=== PATIENT | female | born 1950 | race Caucasian/White ===

== ENCOUNTER 2023-07-06 08:17 | Outpatient (CLI) | payer MEDICARE, BC, SELFPAY ==
--- NOTE | 2023-07-06 09:23 | W.ANESCHARGE ---
Anesthesia Charges Start Date/Time Anesthesia Start Date: 07/06/23 Anesthesia Start Time: 09:30 Stop Date/Time Anesthesia Stop Date: 07/06/23 Anesthesia Stop Time: 10:02 Summary Extremes of Age - Over 70 or under 1: MDA
--- NOTE | 2023-07-06 10:07 | P.ANES_ITS ---
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
== END 2023-07-06 08:18 | disposition home or self-care (01) ==
PROVIDERS: PCP Family Medicine; Visit Provider Internal Medicine Gastroenterology
DX: Z12.11 Encounter for screening for malignant neoplasm of colon (principal); K63.5 Polyp of colon; K57.30 Diverticulosis of large intestine without perforation or abscess without bleeding; Z86.010 Personal history of colon polyps
CPT/HCPCS: 00811; 45380; 45385; 88305; 99100; J2704

== ENCOUNTER 2023-07-13 10:26 | Inpatient (IN) | payer MEDICARE, BC, SELFPAY ==
[2023-07-13] VITALS (26 sets, daily range): BP systolic 111–157; BP diastolic 68–86; PULSE 66–92; RESP 16–20; TEMP 36.6–37.1; O2SAT 94–100; BMI 30.7; BMI 30.3
--- NOTE | 2023-07-13 10:42 | ED_ITS ---
HPI - GI Bleed General Time Seen by Provider: 10:42 Date Seen: 07/13/23 Chief complaint: GI Bleed Stated complaint: GI bleed Time Seen by Provider: 07/13/23 10:26 Source: patient and RN notes reviewed Mode of arrival: ambulatory Limitations: no limitations History of Present Illness HPI Narrative: This 73-year-old female was undergoing routine surveillance colonoscopy for history of high-risk polyps on Thursday07/06/[address] Thompson. She had 2 small polyps, 1 2 mm and a 3 mm polyp removed. She has had valvular surgery and is chronically anticoagulated. Her Coumadin was held 5 days before the procedure in she was bridged with Lovenox. She is back on her Coumadin and was to have an INR checked outpatient today. She admits that she started having carmelo e blood with stools on July 09, states symptoms really started to be progressively worse on July 11 which is Thursday. She last had a more diarrheal stool about half our prior to arrival, she states it was just a lot of red blood with that. She has been having bright red blood with her stools. She feels weak, feels like she is pale. Denies any chest pain, no shortness of breath, no abdominal pain with this. No fevers or chills. 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 Related Data Home Medications Medication Instructions Recorded Confirmed acetaminophen 500 mg tablet 500 mg PO Q6H PRN 01/09/22 01/09/22 amoxicillin 500 mg capsule 2,000 mg PO ONCE PRN 01/09/22 01/09/22 aspirin 81 mg capsule 81 mg PO DAILY 01/09/22 07/13/23 atorvastatin 40 mg tablet 40 mg PO DAILY 01/09/22 07/13/23 calcium carbonate 500 mg calcium 500 mg PO Q4-6H PRN 01/09/22 01/09/22 (1,250 mg) tablet cholecalciferol (vitamin D3) 50 50 mcg PO DAILY 01/09/22 07/13/23 mcg (2,000 unit) capsule cyanocobalamin (vitamin B-12) 1,000 mcg PO DAILY 01/09/22 07/13/23 1,000 mcg capsule furosemide 40 mg tablet (Lasix) 40 mg PO DAILY 01/09/22 07/13/23 iron,carbonyl 65 mg-vitamin C 125 1 tab PO .UD 01/09/22 01/09/22 mg tablet,delayed release (Vitron-C) metformin 1,000 mg tablet 1,000 mg PO BIDWMEAL 01/09/22 07/13/23 lwrbztazzmyf-aktgvltp-rrmkxx tablet 1 tab PO DAILY 01/09/22 07/13/23 primidone 50 mg tablet (Mysoline) 50 mg PO DAILY 01/09/22 01/09/22 progesterone 100 mg PO DAILY 01/09/22 01/09/22 propranolol 60 mg capsule,24 60 mg PO DAILY 01/09/22 01/09/22 hr,extended release warfarin 10 mg tablet 10 mg PO .UD 01/09/22 01/09/22 acetazolamide 250 mg tablet 250 mg PO BID 07/13/23 07/13/23 blood-glucose meter (Accu-Chek 07/13/23 07/13/23 Guide Me Glucose Meter) cephalexin 500 mg capsule 500 mg PO QID 07/13/23 07/13/23 enoxaparin 80 mg/0.8 mL 80 mg subcut Q12H 07/13/23 07/13/23 subcutaneous syringe furosemide 20 mg tablet 20 mg PO BID 07/13/23 07/13/23 lancets (Accu-Chek Softclix 07/13/23 07/13/23 Lancets) medroxyprogesterone 5 mg tablet 5 mg PO DAILY 07/13/23 07/13/23 metoprolol succinate 50 mg 50 mg PO DAILY 07/13/23 07/13/23 tablet,extended release 24 hr warfarin 5 mg tablet mg PO 07/13/23 Allergies Allergy/AdvReac Type Severity Reaction Status Date / Time No Known Drug Allergies Allergy Verified 07/13/23 10:39 Review of Systems Status of ROS: Reports: 6 or more systems reviewed and unremarkable except as noted in History and below [facility] Medical History Diastolic dysfunction ?I51.89 - Other ill-defined heart diseases (ICD-10) Acute blood loss anemia ?D62 - Acute posthemorrhagic anemia (ICD-10) DM2 (diabetes mellitus, type 2) ?E11.9 - Type 2 diabetes mellitus without complications (ICD-10) Colon polyps ?K63.5 - Polyp of colon (ICD-10) Cardiac pacemaker ?Z95.0 - Presence of cardiac pacemaker (ICD-10) Thrombosis of mitral valve ?I34.8 - Other nonrheumatic mitral valve disorders (ICD-10) Atrial fibrillation ?I48.91 - Unspecified atrial fibrillation (ICD-10) HTN (hypertension) ?I10 - Essential (primary) hypertension (ICD-10) Surgical History (Updated 01/13/22 @ 21:58 by Sharlene Eduardo, [employer] WORKER HELPER) Mitral valve replaced ?Z95.2 - Presence of prosthetic heart valve (ICD-10) Social History Smoking Status: Never smoker Do you use any of these nicotine containing products: None How often do you have a drink containing alcohol: never How often do you have six or more drinks on one occasion: Never AUDIT-C Alcohol total score: 0 Non-prescribed substance use: denies use Exam Const: Vital Signs, click to edit/add: Vital Signs - 24 hr 07/13/23 10:32 07/13/23 10:46 07/13/23 11:16 Temperature 98.5 F Pulse Rate 73 Pulse Rate [Right Pulse Oximeter] 85 Respiratory Rate 18 Blood Pressure Blood Pressure [Ri ght Forearm] 135/76 Pulse Oximetry 96 94 95 Oxygen Delivery Me thod Room Air 07/13/23 11:30 07/13/23 11:31 07/13/23 11:32 Temperature Pulse Rate 74 74 73 Pulse Rate [Right Pulse Oximeter] Respiratory Rate Blood Pressure 146/75 H Blood Pressure [Ri ght Forearm] Pulse Oximetry 95 96 95 Oxygen Delivery Me thod 07/13/23 11:45 07/13/23 12:00 07/13/23 12:02 Temperature Pulse Rate 76 73 73 Pulse Rate [Right Pulse Oximeter] Respiratory Rate Blood Pressure 145/74 H Blood Pressure [Ri ght Forearm] Pulse Oximetry 94 95 96 Oxygen Delivery Me thod Iliana is a 73-year-old female ambulatory into the ED of her own accord. She is alert, interactive, no apparent stress. She indeed does look pale to me, sclera clear. Able to speak in complete sentences. CV regular rate and rhythm, systolic murmur heard, 3/6, normal S1-S2, no S3-S4. Lungs are clear, good air entry, no wheezing or crackles. Abdomen is currently soft, no rebound or guarding, no organomegaly. She has no lower extremity edema. She is wearing a panty liner, no active rectal bleeding noted at this time. Documenting provider has reviewed patient's vital signs: yes Course Course ED Course: Patient is currently hemodynamically stable, will have an IV placed, initiate some normal saline, will type and screen, get appropriate blood work obviously including a CBC. She will be on cardiac monitoring and pulse oximetry. Will update endoscopy as it is Thursday and hopefully Dr. Thompson should be here. Reevaluation(s) Time of Reevaluation #1: 11:28 Reevaluation #1: Reviewed with patient her hemoglobin is 8.8, her hemoglobin on 07/08/2023 was 11. It has been in the 11 range for the last year. Her platelet count on July 08 was 244,000. I have ordered 1 unit packed red blood cells to be cross- matched. I am still awaiting her INR. She has had no further bleeding here at this time. She did allude to me at this time that she has been having intermittent explosive diarrhea for couple of months, Dr. Thompson was not aware of this prior to her colonoscopy per patient report, she did not tell him. Time of Reevaluation #2: 12:53 Reevaluation #2: Have updated the patient on the plan for observation here, potential scope tomorrow here if she continues bleeding. She has had her questions answered as well as her 's questions. Consultations Consultation #1: Did just inform Dr. Thompson that patient is here and he reviewed her colonoscopy report. Unfortunately, her polyps were in the cecum and she would likely need a prep for him to scope. She is hemodynamically stable at this point and reviewed with him that she had just arrived but wanted him aware of her presence here. I will keep him posted. Time: 10:54 Consultation #2: Have spoken again with Dr. Thompson and subsequently Dr. Lozoya. Dr. Lozoya could potentially do a colonoscopy EM on her tomorrow for cautery with laser. He is agreeable to this. We will not prep her overnight as it could dislodge the clot, she could have a quick prep in the morning if needed for cautery purposes for the scope. I have ordered tranexamic acid and vitamin K. she is just getting up to go to the bathroom for the 1st time here, she will let us know if she does produce any stool with blood. I did subsequently speak with our hospitalist Dr. Willett, he agrees for admission. Time: 12:27 Vital Signs Vital signs: Initial Vital Signs Temperature 98.5 F 07/13/23 10:32 Temperature Source Temporal Artery Scan 07/13/23 10:32 Pulse Rate 85 07/13/23 10:32 Pulse Rhythm Regular 07/13/23 10:32 Respiratory Rate 18 07/13/23 10:32 Blood Pressure 135/76 07/13/23 10:32 Blood Pressure Mean 95 07/13/23 10:32 Blood Pressure Position Sitting 07/13/23 10:32 Pulse Oximetry 96 07/13/23 10:32 Oxygen Delivery Method Room Air 07/13/23 10:32 Vital Signs Temperature 98.5 F 07/13/23 10:32 Pulse Rate 85 07/13/23 10:32 Respiratory Rate 18 07/13/23 10:32 Blood Pressure 135/76 07/13/23 10:32 Pulse Oximetry 96 07/13/23 10:32 Oxygen Delivery Method Room Air 07/13/23 10:32 Temperature 98.5 F 07/13/23 10:32 Pulse Rate 73 07/13/23 12:02 Respiratory Rate 18 07/13/23 10:32 Blood Pressure 145/74 H 07/13/23 12:02 Pulse Oximetry 96 07/13/23 12:02 Oxygen Delivery Method Room Air 07/13/23 10:32 Medications Administered Medications: Discontinued Medications Generic Name Dose Route Start Last Admin Trade Name Mela PRN Reason Stop Dose Admin Sodium Chloride 1,000 mls @ 500 mls/hr 07/13/23 10:48 07/13/23 11:15 0.9 % Sodium Chloride 1000 Ml IV 07/13/23 12:47 500 mls/hr .Q2H JESSIE Administration Tranexamic Acid 1,000 mg 07/13/23 12:07 07/13/23 12:40 Tranexamic Acid 100 Mg/Ml Inj IV 07/13/23 12:08 1,000 mg ONCE ONE Administration MDM - GI Bleed Lab Data Attestation: I reviewed the patient's lab results. Labs: Lab Results 07/13/23 Range/Units 10:56 WBC 7.76 (4.50-11.00) K/uL RBC 3.02 L (4.00-5.20) m/uL Hgb 8.8 L (12.0-16.0) gm/dL Hct 27.5 L (33.0-51.0) % MCV 91 (80-100) fL MCH 29 (26-34) pg MCHC 32 (32-36) gm/dL RDW Coeff of Nickolas 15.0 (11.5-15.5) % Plt Count 226 (140-440) K/uL Neut % (Auto) 83.0 H (42.0-72.0) % Lymph % (Auto) 11.5 L (20-44) % Lipscomb % (Auto) 4.5 (0.0-11.0) % Eos % (Auto) 0.4 (0.0-7.0) % Baso % (Auto) 0.5 (0.0-3.0) % Neut # (Auto) 6.40 (1.7-7.0) K/uL Lymph # (Auto) 0.90 (0.90-2.90) K/uL Lipscomb # (Auto) 0.30 (0.00-0.90) K/UL Eos # (Auto) 0.03 (0.00-0.50) K/uL Baso # (Auto) 0.04 (0.00-0.30) K/uL Abs Immat Gran (auto) 0.01 (0.00-0.30) K/uL Imm/Tot Granulo (auto) 0.1 % INR 2.10 H (0.91-1.10) Sodium 140 (135-149) mmol/L Potassium 3.9 (3.6-5.1) mmol/L Chloride 109 (96-114) mmol/L Carbon Dioxide 18 L (20-32) mmol/L Anion Gap 13 (7-15) mEq/L BUN 27 (7-30) mg/dL Creatinine 1.2 (0.5-1.5) mg/dL Estimated Creat Clear 38.50 Estimated GFR 48 ml/min Glucose 178 H (60-115) mg/dL Calcium 9.1 (8.4-10.6) mg/dL Total Bilirubin 0.6 (0.1-1.5) mg/dL AST 53 H (12-35) U/L ALT 54 H (4-35) U/L Alkaline Phosphatase 76 (40-150) U/L Total Protein 7.3 (6.0-8.3) g/dL Albumin 4.3 (3.3-5.0) g/dL Blood Type A Negative Antibody Screen NEGATIVE Crossmatch (AHG) See Detail ECG Data Attestation: I personally reviewed and interpreted this ECG as follows: (Sinus rhythm with first-degree AV block, left bundle branch block, rate is 73 beats per minute. QT corrected 513 milliseconds.) ECG interpretation date: 07/13/23 ECG interpretation time: 11:21 Critical Care Time Critical Care Time Critical Care Time: No Discharge Plan Discharge Clinical Impression: Acute blood loss anemia, Lower gastrointestinal hemorrhage Patient Disposition: Admitted As Observation
[2023-07-13 11:06] LABS: Basophils Absolute Auto 0.04 K/uL (0.00-0.30); Basophils Percent Auto 0.5 % (0.0-3.0); Eosinophils Absolute Auto 0.03 K/uL (0.00-0.50); Eosinophils Percent Auto 0.4 % (0.0-7.0); Hematocrit 27.5 % (33.0-51.0); Hemoglobin* 8.8 gm/dL (12.0-16.0); Immature Granulocytes Abs Auto 0.01 K/uL (0.00-0.30); Immature Granulocytes Pct Auto 0.1 %; Lymphocytes Percent Auto 11.5 % (20-44); Mean Corpuscular HGB Conc 32 gm/dL (32-36); Mean Corpuscular Hemoglobin 29 pg (26-34); Mean Corpuscular Volume 91 fL (80-100); Monocytes Percent Auto 4.5 % (0.0-11.0); Platelet Count* 226 K/uL (140-440); Red Blood Count 3.02 m/uL (4.00-5.20); White Blood Count* 7.76 K/uL (4.50-11.00)
[2023-07-13 11:07] LABS: Slide Review Reflex No
[2023-07-13] MEDS: 0.9 % SODIUM CHLORIDE 1000 ml 1,000 ML 500 ML IV (11:15)
[2023-07-13 11:19] LABS: Chloride* 109 mmol/L (96-114)
[2023-07-13 11:20] LABS: Albumin* 4.3 g/dL (3.3-5.0); Potassium* 3.9 mmol/L (3.6-5.1); Sodium* 140 mmol/L (135-149)
[2023-07-13 11:22] LABS: Creatinine* 1.2 mg/dL (0.5-1.5); Estimated Glomerular Filt Rate 48 ml/min
[2023-07-13 11:23] LABS: Alanine Aminotransferase* 54 U/L (4-35); Alkaline Phosphatase* 76 U/L (40-150); Anion Gap 13 mEq/L (7-15); Aspartate Amino Transferase* 53 U/L (12-35); Bilirubin Total* 0.6 mg/dL (0.1-1.5); Blood Urea Nitrogen* 27 mg/dL (7-30); Carbon Dioxide* 18 mmol/L (20-32); Glucose* 178 mg/dL (60-115); Total Protein* 7.3 g/dL (6.0-8.3)
[2023-07-13 11:24] LABS: Calcium* 9.1 mg/dL (8.4-10.6)
[2023-07-13 11:26] LABS: Prothrombin Time 25.1 Seconds
--- NOTE | 2023-07-13 12:35 | ED.NURSE ---
Pt went to bathroom, had a moderate amount of multiple small clots in toilet. No bowel movement.
[2023-07-13] MEDS: TRANEXAMIC ACID 100 MG/ML INJ 1000 MG IV (12:40)
[2023-07-13] MEDS: PHYTONADIONE (VIT K1) 5 MG in 0.9 % SODIUM CHLORIDE 50 ml 50 ML 100 MG IVPB (13:04)
--- NOTE | 2023-07-13 13:12 | ED.NURSE ---
Pt report given to Mendy PYLE
--- NOTE | 2023-07-13 18:47 | PC.NURSE ---
End of shift [id number]: Pt arrived to med/surg unit at 1330. Pt is A&O x4, afebrile and VSS. Pt is independent to SBA with ambulation d/t dizziness & lightheadedness r/t low Hgb. Received 1 unit RBC's on arrival and tolerated transfusion well without reactions. PIV in right AC is now SL and C/D/I. On TELE reading LBBB A paced intermittent A. Fib. Pt is on chronic coumadin and h/o mitral valve replacement. Pt has DM2 controlled with metformin, blood sugar at 1700: 116. Pt is NPO except water for possible EGD or repeat colonoscopy. She had a colonoscopy on Thursday 07/06 and bloody stools began on 07/09. No BM since arrival to the unit. Hgb recheck after blood transfusion is at 1900.
[2023-07-13 20:06] LABS: Hemoglobin* 9.3 gm/dL (12.0-16.0)
--- NOTE | 2023-07-13 21:52 | P.IMHP_ITS ---
Hospitalist- H&P: HPI History of Present Illness Time Seen by Provider: 15:00 Date Seen: 07/13/23 Chief complaint: GI bleed Narrative: Iliana Benjamin is a 73 year old female with a history of mechanical mitral valve replacement, tricuspid valve repair, pacemaker for AFib, diastolic dysfunction COVID type 2 diabetes who had a colonoscopy on 07/06/[address] Thompson during which 2 small polyps were removed. She is chronically anticoagulated with warfarin and was bridged with Lovenox for the procedure. She was supposed to have her last dose of Lovenox tonight. The day after the procedure she started having back pain that was in her low left back and radiated around down the side of her left hip. That pain lasted for a few days. A July 09 she started having small amount of bright red blood in her stool. This continued in that on Thursday the stool was very loose and grossly bloody. This has continued. She feels very weak and her notes that she is extremely pale. Due to low hemoglobin with active lower GI bleeding, she was given a unit of packed red blood cells in the emergency room. Her notes that she is somewhat improved in color and pep since starting that. She denies chest pain, shortness a breath, or fevers. She does feel cold. Review of Systems Status of ROS: Reports: 10 or more systems reviewed and unremarkable except as noted in History and below [facility] Medical History (Updated 07/14/23 @ 01:18 by Veronica Haley MD) Elevated LFTs ?R79.89 - Other specified abnormal findings of blood chemistry (ICD-10) NSTEMI (non-ST elevated myocardial infarction) ?I21.4 - Non-ST elevation (NSTEMI) myocardial infarction (ICD-10) Stage 3 chronic kidney disease ?N18.30 - Chronic kidney disease, stage 3 unspecified (ICD-10) Anemia of unknown etiology ?D64.9 - Anemia, unspecified (ICD-10) Presence of permanent cardiac pacemaker ?Z95.0 - Presence of cardiac pacemaker (ICD-10) Adenomatous colon polyp ?D12.6 - Benign neoplasm of colon, unspecified (ICD-10) Tremor of right hand ?R25.1 - Tremor, unspecified (ICD-10) Chronic anticoagulation ?Z79.01 - watermaster (current) use of anticoagulants (ICD-10) Postmenopausal bleeding ?N95.0 - Postmenopausal bleeding (ICD-10) Tinnitus of both ears ?H93.13 - Tinnitus, bilateral (ICD-10) Actinic keratosis ?L57.0 - Actinic keratosis (ICD-10) Diastolic dysfunction ?I51.89 - Other ill-defined heart diseases (ICD-10) Acute blood loss anemia ?D62 - Acute posthemorrhagic anemia (ICD-10) DM2 (diabetes mellitus, type 2) ?E11.9 - Type 2 diabetes mellitus without complications (ICD-10) Colon polyps ?K63.5 - Polyp of colon (ICD-10) Cardiac pacemaker ?Z95.0 - Presence of cardiac pacemaker (ICD-10) Thrombosis of mitral valve ?I34.8 - Other nonrheumatic mitral valve disorders (ICD-10) Atrial fibrillation ?I48.91 - Unspecified atrial fibrillation (ICD-10) HTN (hypertension) ?I10 - Essential (primary) hypertension (ICD-10) Surgical History (Updated 07/13/23 @ 22:11 by Veronica Haley MD) H/O tubal ligation ?Z98.51 - Tubal ligation status (ICD-10) S/P tonsillectomy and adenoidectomy ?Z90.89 - Acquired absence of other organs (ICD-10) History of permanent cardiac pacemaker placement ?Z95.0 - Presence of cardiac pacemaker (ICD-10) H/O mechanical aortic valve replacement ?Z95.2 - Presence of prosthetic heart valve (ICD-10) Hx laparoscopic cholecystectomy ?Z90.49 - Acquired absence of other specified parts of digestive tract (ICD-10) Hx of cardiac cath ?Z98.890 - Other specified postprocedural states (ICD-10) H/O esophagogastroduodenoscopy ?Z98.890 - Other specified postprocedural states (ICD-10) H/O dilation and curettage ?Z98.890 - Other specified postprocedural states (ICD-10) Hx of colonoscopy ?Z98.890 - Other specified postprocedural states (ICD-10) Mitral valve replaced ?Z95.2 - Presence of prosthetic heart valve (ICD-10) Family History (Updated 07/13/23 @ 14:56 by Veronica Haley MD) Father Heart disease Renal failure Brother Myocardial infarction, Onset Age: 40 Mother Lung cancer Social History (Updated 07/13/23 @ 22:05 by Veronica Haley MD) Narrative: . , Markus, is here with her. Never smoker. Rare EtOH use. FULL CODE. What is your current living situation?: I presently have a place to live Problems where you live: no known problems Problems where you live details: [place] In the past 12 months, utilities in danger of being shut off: no In past 12 months, lack of transportation kept you from medical appts, meetings, work, or getting things needed for daily living: no In the past 12 mos, have been you worried that your food would run out before you had money to buy more?: never true In the past 12 mos, the food you bought just didn't last and you didn't have money to buy more?: never true Highest level of school completed/degree received: GED or equivalent Smoking Status: Never smoker Do you use any of these nicotine containing products: None Second hand tobacco smoke exposure: No How often do you have a drink containing alcohol: monthly or less Alcohol type: wine How many standard drinks containing alcohol do you have on a typical day: 1 or 2 How often do you have six or more drinks on one occasion: Never AUDIT-C Alcohol total score: 1 Non-prescribed substance use: denies use Caffeine: Yes (coffee/tea) How often does anyone, including family, friends and others, physically hurt you : never How often does anyone, including family, friends and others, insult or talk down to you: never How often does anyone, including family, friends and others, threaten you with harm: never How often does anyone, including family, friends and others, scream or curse at you: never service: No Meds Home Medications and Allergies Home Medications Medication Instructions Recorded Confirmed Type acetaminophen 500 mg tablet 500 mg PO Q6H PRN 01/09/22 07/13/23 History amoxicillin 500 mg capsule 2,000 mg PO ONCE PRN 01/09/22 07/13/23 History aspirin 81 mg capsule 81 mg PO DAILY 01/09/22 07/13/23 History atorvastatin 40 mg tablet 40 mg PO DAILY 01/09/22 07/13/23 History calcium carbonate 500 mg calcium 500 mg PO Q4-6H PRN 01/09/22 07/13/23 History (1,250 mg) tablet cholecalciferol (vitamin D3) 50 50 mcg PO DAILY 01/09/22 07/13/23 History mcg (2,000 unit) capsule cyanocobalamin (vitamin B-12) 1,000 mcg PO DAILY 01/09/22 07/13/23 History 1,000 mcg capsule iron,carbonyl 65 mg-vitamin C 125 1 tab PO DAILY 01/09/22 07/13/23 History mg tablet,delayed release (Vitron-C) metformin 1,000 mg tablet 1,000 mg PO BIDWMEAL 01/09/22 07/13/23 History owjcdisapdyn-rqsqlvzb-osgkha tablet 1 tab PO DAILY 01/09/22 07/13/23 History acetazolamide 250 mg tablet 250 mg PO BID 07/13/23 07/13/23 History blood-glucose meter (Accu-Chek 07/13/23 07/13/23 History Guide Me Glucose Meter) furosemide 20 mg tablet 20 mg PO BID 07/13/23 07/13/23 History lancets (Accu-Chek Softclix 07/13/23 07/13/23 History Lancets) medroxyprogesterone 5 mg tablet 5 mg PO DAILY 07/13/23 07/13/23 History metoprolol succinate 50 mg 50 mg PO DAILY 07/13/23 07/13/23 History tablet,extended release 24 hr warfarin 5 mg tablet 5 - 10 mg PO DAILY 07/13/23 07/13/23 History Allergies Allergy/AdvReac Type Severity Reaction Status Date / Time No Known Drug Allergies Allergy Verified 07/13/23 10:39 Exam Narrative: Exam Narrative: General: No acute distress. Awake alert oriented x3. Very pale all over, face, hands, feet. Cold extremities, no mottling. HEENT: Normocephalic atraumatic, pupils equally round and reactive to light and accommodation. Oropharynx clear. Mucous membranes are dry. No cervical lymphadenopathy, thyromegaly or carotid bruits. No JVD. Cardiovascular: Regular rate and rhythm. 3/6 systolic murmur loudest at the left lower sternal border. Chest: No increased work of breathing. Clear to auscultation bilaterally. No crackles or wheezes. Abdomen: Bowel sounds present. Soft, nondistended, nontender. No hepatosplenomegaly or masses. Back: Nontender to palpation, no deformities. Extremities: No edema, no cyanosis or clubbing. Skin: No jaundice, no rashes. Neuro: Able to sit up in even stand up from the bed on her own, moves all extremities. No focal deficits. Const: Vital Signs, click to edit/add: Vital Signs - 24 hr 07/13/23 10:32 07/13/23 10:46 07/13/23 11:16 Temperature 98.5 F Pulse Rate 73 Pulse Rate [Pulse Oximeter] Pulse Rate [Right Pulse Oximeter] 85 Respiratory Rate 18 Blood Pressure Blood Pressure [Le ft Arm] Blood Pressure [Ri ght Forearm] 135/76 Pulse Oximetry 96 94 95 [facility] 07/13/23 11:30 07/13/23 11:31 07/13/23 11:32 Temperature Pulse Rate 74 74 73 Pulse Rate [Pulse Oximeter] Pulse Rate [Right Pulse Oximeter] Respiratory Rate Blood Pressure 146/75 H Blood Pressure [Le ft Arm] Blood Pressure [Ri ght Forearm] Pulse Oximetry 95 96 95 Oxygen Delivery Nd thod 07/13/23 11:45 07/13/23 12:00 07/13/23 12:02 Temperature Pulse Rate 76 73 73 Pulse Rate [Pulse Oximeter] Pulse Rate [Right Pulse Oximeter] Respiratory Rate Blood Pressure 145/74 H Blood Pressure [Le ft Arm] Blood Pressure [Ri ght Forearm] Pulse Oximetry 94 95 96 Oxygen Delivery Me thod 07/13/23 12:03 07/13/23 12:15 07/13/23 12:30 Temperature Pulse Rate 85 73 85 Pulse Rate [Pulse Oximeter] Pulse Rate [Right Pulse Oximeter] Respiratory Rate Blood Pressure Blood Pressure [Le ft Arm] Blood Pressure [Ri ght Forearm] Pulse Oximetry 96 97 97 Oxygen Delivery Nd thod 07/13/23 12:32 07/13/23 12:45 07/13/23 13:00 Temperature Pulse Rate 72 71 71 Pulse Rate [Pulse Oximeter] Pulse Rate [Right Pulse Oximeter] Respiratory Rate Blood Pressure 157/71 H Blood Pressure [Le ft Arm] Blood Pressure [Ri ght Forearm] Pulse Oximetry 99 97 99 [facility] 07/13/23 13:15 07/13/23 13:49 07/13/23 13:49 Temperature 98.1 F Pulse Rate 76 Pulse Rate [Pulse Oximeter] 89 Pulse Rate [Right Pulse Oximeter] Respiratory Rate 16 Blood Pressure Blood Pressure [Le ft Arm] 150/81 H Blood Pressure [Ri ght Forearm] Pulse Oximetry 98 100 100 Oxygen Delivery [facility] Room Air Room Air 07/13/23 14:35 07/13/23 14:45 07/13/23 15:00 Temperature 98 F 98.1 F Pulse Rate 92 80 78 Pulse Rate [Pulse Oximeter] Pulse Rate [Right Pulse Oximeter] Respiratory Rate 16 16 Blood Pressure 133/81 119/70 Blood Pressure [Le ft Arm] Blood Pressure [Ri ght Forearm] Pulse Oximetry 100 98 Oxygen Delivery [facility] 07/13/23 15:00 07/13/23 15:00 07/13/23 15:30 Temperature 98.2 F 98.2 F Pulse Rate 82 Pulse Rate [Pulse Oximeter] 78 81 Pulse Rate [Right Pulse Oximeter] Respiratory Rate 16 16 16 Blood Pressure 122/80 Blood Pressure [Le ft Arm] 131/80 Blood Pressure [Ri ght Forearm] Pulse Oximetry 98 97 Oxygen Delivery [facility] Room Air 07/13/23 16:30 07/13/23 17:30 07/13/23 18:00 Temperature 98.5 F 98.5 F 98.5 F Pulse Rate 79 76 66 Pulse Rate [Pulse Oximeter] Pulse Rate [Right Pulse Oximeter] Respiratory Rate 16 16 16 Blood Pressure 143/71 H 133/73 129/74 Blood Pressure [Le ft Arm] Blood Pressure [Ri ght Forearm] Pulse Oximetry 97 98 98 Oxygen Delivery [facility] 07/13/23 19:00 Temperature 98.7 F Pulse Rate Pulse Rate [Pulse Oximeter] 78 Pulse Rate [Right Pulse Oximeter] Respiratory Rate 20 Blood Pressure Blood Pressure [Le ft Arm] 141/86 H Blood Pressure [Ri ght Forearm] Pulse Oximetry 98 Oxygen Delivery [facility] Hospitalist - H&P: Result Labs Labs: Short CBC 07/13/23 07/13/23 Range/Units 10:56 18:55 WBC 7.76 (4.50-11.00) K/uL Hgb 8.8 L 9.3 L (12.0-16.0) gm/dL Hct 27.5 L (33.0-51.0) % Plt Count 226 (140-440) K/uL BMP 07/13/23 10:56 Sodium 140 Potassium 3.9 Chloride 109 Carbon Dioxide 18 L BUN 27 Creatinine 1.2 Glucose 178 H Calcium 9.1 Liver Function 07/13/23 Range/Units 10:56 Total Bilirubin 0.6 (0.1-1.5) mg/dL AST 53 H (12-35) U/L ALT 54 H (4-35) U/L Alkaline Phosphatase 76 (40-150) U/L Albumin 4.3 (3.3-5.0) g/dL EKG: Sinus rhythm with first-degree AV block, 73 beats per minute, left bundle- branch block. Patient has a pacemaker. There are no previous EKGs in our system to compare this. Assessment and Plan Assessment and plan (1) Lower gastrointestinal hemorrhage: Problem comment: - likely from biopsy sites from recent colonoscopy. She has been on anticoagulation due to metallic mitral valve which has likely exacerbated this. I am holding anticoagulation for now. She got vitamin K and TXA in the emergency department. If she continues to bleed overnight, she will need a colonoscopy for intervention. Check hemoglobin at least q.12 hours while bleeding. She has already received 1 unit packed red blood cells. I favor keeping her hemoglobin greater than 8, especially if still bleeding, in light of her cardiac status. Status: Acute (2) Acute blood loss anemia: Problem comment: As above. Status: Acute (3) Anemia of unknown etiology: Problem comment: GI consult 2021 [place] - follow up if drop in hgb Should recurrence of unexplained Hgb drop recur, we can consider further GI testing with repeat EGD and if unremarkable, capsule endoscopy would follow. It is unclear if her anemia is due to iron deficiency and transferrin receptor could be helpful for future testing Anemia 2020: diagnosed 09/2019 HGB 8.6, ferritin 28 with routine blood work - workup delayed per patient request given pandemic - started iron. Gradual improvement PMR diagnosed 12/2019 started prednisone Colonoscopy 01/2020 - multiple adenoma Hematology consult: normal BMBx Hx of anemia due to 2017 treated with D and C, progesterone Status: Chronic (4) Presence of permanent cardiac pacemaker: Status: Chronic (5) Chronic anticoagulation: Problem comment: For metallic mitral valve, Target Goal = 3.0-3.5 per PCP (TE 03/05/18) - holding anticoagulation for now while actively bleeding. I explained the risks and benefits of this plan to the patient and her . They were agreeable with holding anticoagulation during the active GI bleeding. Status: Chronic (6) Mitral valve replaced: Problem comment: - 12/07/2013 s/p 1. Mitral Valve Replacement with 25 [address] [employer] Epic Tissue Valve, preservation of posterior leaflet 2. Left atrial appendage Ligation with 35 atriclip - 12/22/17 echo: 1. The mitral valve is a [address] [place] Epic bioprosthesis MVR with evidence of mass (mobile - thrombus vs vegetation), trace mitral regurgitation. Mean diastolic gradient severely increased at 16-17 mm Hg at HR 58 bpm. Mitral stenosis 03/01/2012 Valvuloplasty 06/02 ? 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 The mitral valve is a [address] [employer] Epic bioprosthesis MVR with evidence of mass (mobile - thrombus vs vegetation), trace mitral regurgitation. Mean diastolic gradient severely increased at 16-17 mm Hg at HR 58 bpm. ? Pacemaker 06/01/2018 ? S/P mitral valve replacement with metallic valve 05/26/2018 Redo sternotomy On-X valve ? S/P MVR (mitral valve replacement) 12/07/2013 - 12/07/2013 s/p 1. Mitral Valve Replacement with 25 [address] [employer] Epic Tissue Valve, preservation of posterior leaflet 2. Left atrial appendage Ligation with 35 atriclip - 12/22/17 echo: 1. The mitral valve is a [address] [employer] Epic bioprosthesis MVR with evidence of mass (mobile - thrombus vs vegetation), trace mitral regurgitation. Mean diastolic gradient severely increased at 16-17 mm Hg at HR 58 bpm. Status: Chronic (7) DM2 (diabetes mellitus, type 2): Problem comment: Previously on metformin - held due to increased creatinine - insulin sliding scale with q.6 hours Accu-Cheks while NPO Status: Chronic (8) Elevated LFTs: Status: Chronic
[2023-07-14] MEDS: SODIUM CHLORIDE 0.9 % (FLUSH) 10 ML SYRINGE 5 ML IVF ×3 (00:26→20:41)
[2023-07-14 02:35] VITALS: BP 135/86; PULSE 79; RESP 20; TEMP 36.6; O2SAT 98
--- NOTE | 2023-07-14 05:32 | PC.NURSE ---
Patient pleasant, alert and oriented. Used call light when needing assistance. Stand by assist for ambulation. Denies any stools tonight. Denies discomfort. Bowel sounds active. Afebrile.?
[2023-07-14 06:48] LABS: Hemoglobin* 8.2 gm/dL (12.0-16.0)
[2023-07-14 07:00] VITALS: BP 146/76; PULSE 73; PULSE 77; RESP 16; TEMP 36.8; O2SAT 96; O2SAT 97
[2023-07-14 07:34] LABS: INR 1.27 (0.91-1.10); Prothrombin Time 16.7 Seconds
[2023-07-14] MEDS: WARFARIN 5 MG TABLET 10 MG PO (09:13)
[2023-07-14] MEDS: MEDROXYPROGESTERONE 5 MG TABLET PO (09:14)
[2023-07-14] MEDS: FUROSEMIDE 20 MG TABLET PO ×2 (09:14→16:30)
[2023-07-14] MEDS: METOPROLOL SUCCINATE (XL) 50 MG TAB PO (09:14)
[2023-07-14] MEDS: ATORVASTATIN CALCIUM 40 MG TABLET PO ×2 (09:18→20:41)
[2023-07-14 11:00] VITALS: BP 128/83; PULSE 76; RESP 16; TEMP 36.8; O2SAT 97
--- NOTE | 2023-07-14 14:07 | PC.NURSE ---
VSS. RA. Denies pain. Clear liquid diet- tolerating. Drinking well. 800 cc clear yellow urine out. No BM. Up SBA d/t occasionally feeling faint. PIV- SL'd. Will continue to monitor, follow POC, and keep pt and family updated. Lucille Montgomery RN
[2023-07-14 14:11] LABS: Hemoglobin* 8.7 gm/dL (12.0-16.0)
[2023-07-14 15:00] VITALS: BP 129/67; PULSE 56; PULSE 84; RESP 18; TEMP 36.7; O2SAT 99
--- NOTE | 2023-07-14 16:25 | PM.IMPN1 ---
Progress Note: A&P Assessment and plan (1) Lower gastrointestinal hemorrhage: Problem details: Lower GI bleeding likely from biopsies from colonoscopy 1 week ago. Bleeding has appeared to have stopped. Hemoglobin has stabilized. Will continue to monitor anticoagulation and hemoglobin. Will resume warfarin today anticipating a few days to get therapeutic INR Status: Acute (2) Anemia of unknown etiology: Problem details: GI consult [address] [place] - follow up if drop in hgb Should recurrence of unexplained Hgb drop recur, we can consider further GI testing with repeat EGD and if unremarkable, capsule endoscopy would follow. It is unclear if her anemia is due to iron deficiency and transferrin receptor could be helpful for future testing Anemia 2020: diagnosed 09/2019 HGB 8.6, ferritin 28 with routine blood work - workup delayed per patient request given pandemic - started iron. Gradual improvement PMR diagnosed 12/2019 started prednisone Colonoscopy 01/2020 - multiple adenoma Hematology consult: normal BMBx Hx of anemia due to DUB 2017 treated with D and C, progesterone Status: Chronic (3) Chronic anticoagulation: Problem details: For metallic mitral valve, Target Goal = 3.0-3.5 per PCP (TE 03/05/18) Since it appears her bleeding is stopped will restart anticoagulation. Close monitoring Status: Chronic (4) Mitral valve replaced: Problem details: - 12/07/2013 s/p 1. Mitral Valve Replacement with 25 [address] [employer] Epic Tissue Valve, preservation of posterior leaflet 2. Left atrial appendage Ligation with 35 atriclip - 12/22/17 echo: 1. The mitral valve is a [address] [employer] Epic bioprosthesis MVR with evidence of mass (mobile - thrombus vs vegetation), trace mitral regurgitation. Mean diastolic gradient severely increased at 16-17 mm Hg at HR 58 bpm. Mitral stenosis 03/01/2012 Valvuloplasty 06/02 ? 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 The mitral valve is a [address] [employer] Epic bioprosthesis MVR with evidence of mass (mobile - thrombus vs vegetation), trace mitral regurgitation. Mean diastolic gradient severely increased at 16-17 mm Hg at HR 58 bpm. ? Pacemaker 06/01/2018 ? S/P mitral valve replacement with metallic valve 05/26/2018 Redo sternotomy On-X valve ? S/P MVR (mitral valve replacement) 12/07/2013 - 12/07/2013 s/p 1. Mitral Valve Replacement with 25 [address] [employer] Epic Tissue Valve, preservation of posterior leaflet 2. Left atrial appendage Ligation with 35 atriclip - 12/22/17 echo: 1. The mitral valve is a [address] [employer] Epic bioprosthesis MVR with evidence of mass (mobile - thrombus vs vegetation), trace mitral regurgitation. Mean diastolic gradient severely increased at 16-17 mm Hg at HR 58 bpm. Status: Chronic (5) Acute blood loss anemia: Problem details: As above. Status: Acute (6) Presence of permanent cardiac pacemaker: Status: Chronic (7) Elevated LFTs: Problem details: Not clearly correlated with current problems. Fatty liver? Status: Chronic (8) DM2 (diabetes mellitus, type 2): Problem details: Previously on metformin - held due to increased creatinine - insulin sliding scale with q.6 hours Accu-Cheks while NPO Status: Chronic Plan Continue in-hospital for monitoring of vital signs, bleeding, hemoglobin. Possible discharge to home tomorrow if no evidence of ongoing bleeding. Time Spent With Patient Total time spent: Total time spent is 45 minutes in coordination of care and discussing with patient and other providers ongoing management of bleeding and prosthetic valve anticoagulation Subjective Date Seen: 07/14/23 Interval history: Iliana Benjamin is a 73 year old female with a history of mechanical mitral valve replacement, tricuspid valve repair, pacemaker for AFib, diastolic dysfunction COVID type 2 diabetes who had a colonoscopy on 07/06/[address] Thompson during which 2 small polyps were removed. She is chronically anticoagulated with warfarin and was bridged with Lovenox for the procedure. She was supposed to have her last dose of Lovenox tonight. The day after the procedure she started having back pain that was in her low left back and radiated around down the side of her left hip. That pain lasted for a few days. A July 09 she started having small amount of bright red blood in her stool. This continued in that on Thursday the stool was very loose and grossly bloody. This has continued. She feels very weak and her notes that she is extremely pale. Due to low hemoglobin with active lower GI bleeding, she was given a unit of packed red blood cells in the emergency room. Her notes that she is somewhat improved in color and pep since starting that. She denies chest pain, shortness a breath, or fevers. She reports she has had no further bloody stools since the emergency room yesterday. She is having no chest pain or dyspnea. She is hungry Exam Narrative: Exam Narrative: She is alert and oriented to her circumstances. Respirations are clear to auscultation. Cardiovascular: S1, S2, relatively regular rhythm. Abdomen is soft without tenderness or mass. Extremities without edema Const: Vital Signs, click to edit/add: Vital Signs - 24 hr 07/13/23 16:30 07/13/23 17:30 07/13/23 18:00 Temperature 98.5 F 98.5 F 98.5 F Pulse Rate 79 76 66 Pulse Rate [Pulse Oximeter] Respiratory Rate 16 16 16 Blood Pressure 143/71 H 133/73 129/74 Blood Pressure [Le ft Arm] Pulse Oximetry 97 98 98 Oxygen Delivery Me thod 07/13/23 19:00 07/13/23 23:00 07/13/23 23:00 Temperature 98.7 F 98.8 F Pulse Rate Pulse Rate [Pulse Oximeter] 78 75 Respiratory Rate 20 20 20 Blood Pressure Blood Pressure [Le ft Arm] 141/86 H 111/68 Pulse Oximetry 98 96 97 Oxygen Delivery Me thod Room Air Room Air Room Air 07/13/23 23:00 07/14/23 02:35 07/14/23 07:00 Temperature 97.9 F 98.3 F Pulse Rate 73 Pulse Rate [Pulse Oximeter] 79 73 Respiratory Rate 20 16 Blood Pressure Blood Pressure [Le ft Arm] 135/86 146/76 H Pulse Oximetry 98 97 Oxygen Delivery Me thod Room Air 07/14/23 07:00 07/14/23 07:00 07/14/23 11:00 Temperature 98.3 F Pulse Rate 77 Pulse Rate [Pulse Oximeter] 76 Respiratory Rate 16 16 Blood Pressure Blood Pressure [Le ft Arm] 128/83 Pulse Oximetry 96 97 Oxygen Delivery Me thod Room Air Room Air Documenting provider has reviewed patient's vital signs: yes Labs Labs: Laboratory Results - last 24 hr 07/13/23 07/13/23 07/14/23 10:56 18:55 05:50 Hgb 9.3 L 8.2 L INR 1.27 H Crossmatch (AHG) See Detail 07/14/23 14:00 Hgb 8.7 L INR Crossmatch (AHG)
[2023-07-14] MEDS: INSULIN ASPART 100 UNIT/ML SUBCUT (18:26)
[2023-07-14 19:00] VITALS: BP 132/88; PULSE 78; RESP 18; TEMP 37.1; O2SAT 96
[2023-07-14 22:04] LABS: Hemoglobin* 8.7 gm/dL (12.0-16.0)
--- NOTE | 2023-07-14 22:14 | PC.NURSE ---
Addendum entered by Lucille Bergman RN 07/14/23 23:36: Denies any lightheadedness or dizziness. Original Note: End of Shift: Patient pleasant and cooperative. Afebrile. Denies pain. Up with SBA. Tolerating full liquid diet with no nausea. Patient had a 500 mL urine/stool mix that was maroon in color. Updated MD and continue with hemoglobin blood draw as scheduled. No further stool this shift.
[2023-07-14 23:00] VITALS: BP 128/57; PULSE 73; PULSE 74; RESP 18; TEMP 37; O2SAT 97
[2023-07-15 02:53] VITALS: BP 139/66; PULSE 76; RESP 18; TEMP 37; O2SAT 99
--- NOTE | 2023-07-15 05:30 | PC.NURSE ---
Patient pleasant, alert and oriented. Independent in room for ambulation.?Denies any stools tonight. No discomfort. Afebrile. Denies any weakness, dizziness or lightheadedness and reports she feels fine. VSS.?
[2023-07-15 06:27] LABS: Basophils Absolute Auto 0.03 K/uL (0.00-0.30); Basophils Percent Auto 0.6 % (0.0-3.0); Eosinophils Absolute Auto 0.13 K/uL (0.00-0.50); Eosinophils Percent Auto 2.5 % (0.0-7.0); Hematocrit 25.5 % (33.0-51.0); Hemoglobin* 8.4 gm/dL (12.0-16.0); Immature Granulocytes Abs Auto 0.03 K/uL (0.00-0.30); Immature Granulocytes Pct Auto 0.6 %; Lymphocytes Percent Auto 19.5 % (20-44); Mean Corpuscular HGB Conc 33 gm/dL (32-36); Mean Corpuscular Hemoglobin 30 pg (26-34); Mean Corpuscular Volume 91 fL (80-100); Neutrophils Absolute Auto 3.64 K/uL (1.7-7.0); Neutrophils Percent Auto 68.8 % (42.0-72.0); Platelet Count* 190 K/uL (140-440); RDW Coefficient of Variation % 14.7 % (11.5-15.5); Red Blood Count 2.81 m/uL (4.00-5.20); White Blood Count* 5.28 K/uL (4.50-11.00)
[2023-07-15 06:38] LABS: Slide Review Reflex No
[2023-07-15 06:43] LABS: INR 1.16 (0.91-1.10); Prothrombin Time 15.5 Seconds
[2023-07-15 06:54] VITALS: PULSE 64
[2023-07-15 07:00] VITALS: BP 142/82; PULSE 67; RESP 16; TEMP 36.9; O2SAT 97
[2023-07-15] MEDS: METOPROLOL SUCCINATE (XL) 50 MG TAB PO (09:18)
[2023-07-15] MEDS: MEDROXYPROGESTERONE 5 MG TABLET PO (09:18)
[2023-07-15] MEDS: FUROSEMIDE 20 MG TABLET PO (09:19)
[2023-07-15] MEDS: WARFARIN 5 MG TABLET 10 MG PO (09:19)
[2023-07-15] MEDS: INSULIN ASPART 100 UNIT/ML SUBCUT (09:20)
[2023-07-15] MEDS: SODIUM CHLORIDE 0.9 % (FLUSH) 10 ML SYRINGE 5 ML IVF (09:23)
[2023-07-15 11:00] VITALS: BP 148/74; PULSE 59; RESP 16; TEMP 36.8; O2SAT 98
--- NOTE | 2023-07-15 12:42 | P.DS_ITS ---
DS: Providers Provider Date Seen: 07/15/23 Date of admission: 07/13/23 15:00 Primary care physician: Sagrario Dudley DO Admitting Clinician: Noah Willett MD Attending Physician on discharge: Noah Willett MD Date of Discharge: 07/15/23 DS: Diagnosis Discharge Diagnosis (1) Lower gastrointestinal hemorrhage: Status: Acute Problem details: Lower GI bleeding likely from biopsies from colonoscopy 1 week ago. Bleeding has appeared to have stopped. Hemoglobin has stabilized. Will continue to monitor anticoagulation and hemoglobin. Will resume warfarin today anticipating a few days to get therapeutic INR (2) Acute blood loss anemia: Status: Acute Problem details: Due to bleeding from polypectomy on colonoscopy 1 week ago (3) Chronic anticoagulation: Status: Chronic Problem details: For metallic mitral valve, Target Goal = 3.0-3.5 per PCP (TE 03/05/18) Since it appears her bleeding is stopped will restart anticoagulation. Close monitoring (4) Mitral valve replaced: Status: Chronic Problem details: - 12/07/2013 s/p 1. Mitral Valve Replacement with 25 [address] [employer] Epic Tissue Valve, preservation of posterior leaflet 2. Left atrial appendage Ligation with 35 atriclip - 12/22/17 echo: 1. The mitral valve is a [address] [place] Epic bioprosthesis MVR with evidence of mass (mobile - thrombus vs vegetation), trace mitral regurgitation. Mean diastolic gradient severely increased at 16-17 mm Hg at HR 58 bpm. Mitral stenosis 03/01/2012 Valvuloplasty 06/02 ? 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 The mitral valve is a [address] [employer] Epic bioprosthesis MVR with evidence of mass (mobile - thrombus vs vegetation), trace mitral regurgitation. Mean diastolic gradient severely increased at 16-17 mm Hg at HR 58 bpm. ? Pacemaker 06/01/2018 ? S/P mitral valve replacement with metallic valve 05/26/2018 Redo sternotomy On-X valve ? S/P MVR (mitral valve replacement) 12/07/2013 - 12/07/2013 s/p 1. Mitral Valve Replacement with 25 [address] [employer] Epic Tissue Valve, preservation of posterior leaflet 2. Left atrial appendage Ligation with 35 atriclip - 12/22/17 echo: 1. The mitral valve is a [address] [employer] Epic bioprosthesis MVR with evidence of mass (mobile - thrombus vs vegetation), trace mitral regurgitation. Mean diastolic gradient severely increased at 16-17 mm Hg at HR 58 bpm. (5) Anemia of unknown etiology: Status: Chronic Problem details: Past history of anemia: GI consult [address] [facility] follow up if drop in hgb Should recurrence of unexplained Hgb drop recur, we can consider further GI testing with repeat EGD and if unremarkable, capsule endoscopy would follow. It is unclear if her anemia is due to iron deficiency and transferrin receptor could be helpful for future testing Anemia 2020: diagnosed 09/2019 HGB 8.6, ferritin 28 with routine blood work - workup delayed per patient request given pandemic - started iron. 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 No further evaluation during this hospital stay DS: Summary Hospital Course Hospital Course: 73-year-old female admitted to the hospital with bright red blood per rectum and anemia. One week prior to admission she underwent colonoscopy with polypectomy x2. Her hemoglobin on admission was 8.8. She received 1 unit blood transfusion and her hemoglobin went to 9.3. It then dropped to 8.2 yesterday and is 8.4 this morning. She is chronically anticoagulated with warfarin. This was held for the colonoscopy but then resumed and her INR was 2.1 on the day of admission. She received vitamin K and her INR dropped to 1.16. Since admission from the emergency department she has had 1 stool with dark red blood mixed with urine. No other bright red bleeding. She reports otherwise feeling well. Patient is anxious to go home and we discussed ongoing risk for bleeding as well as thrombosis related to her mechanical mitral valve. This point I would like to resume her warfarin at 10 mg daily pending an INR and hemoglobin and appointment in 5 days. She is to return to the emergency department if she gets significant rectal bleeding again. Time Spent with Patient Time attestation: Total time spent providing and/or coordinating discharge services:35 minutes Exam Narrative: Exam Narrative: She is alert and appears in no distress. Abdomen with active bowel sounds it is soft without tenderness. Const: Vital Signs, click to edit/add: Vital Signs - 24 hr 07/14/23 15:00 07/14/23 15:00 07/14/23 15:00 Temperature 98.0 F Pulse Rate Pulse Rate [Pulse Oximeter] 56 L 56 L Respiratory Rate 18 18 Blood Pressure [Le ft Arm] 129/67 Pulse Oximetry 99 99 Oxygen Delivery Me thod Room Air Room Air 07/14/23 15:00 07/14/23 19:00 07/14/23 23:00 Temperature 98.7 F Pulse Rate 84 Pulse Rate [Pulse Oximeter] 78 Respiratory Rate 18 18 Blood Pressure [Le ft Arm] 132/88 Pulse Oximetry 96 97 Oxygen Delivery Me thod Room Air Room Air 07/14/23 23:00 07/14/23 23:00 07/15/23 02:53 Temperature 98.6 F 98.6 F Pulse Rate 73 Pulse Rate [Pulse Oximeter] 74 76 Respiratory Rate 18 18 Blood Pressure [Le ft Arm] 128/57 L 139/66 Pulse Oximetry 97 99 Oxygen Delivery Dc thod Room Air Room Air 07/15/23 06:54 07/15/23 07:00 07/15/23 07:00 Temperature 98.4 F Pulse Rate 64 Pulse Rate [Pulse Oximeter] 67 Respiratory Rate 16 16 Blood Pressure [Le ft Arm] 142/82 H Pulse Oximetry 97 97 Oxygen Delivery Dc thod Room Air Room Air 07/15/23 11:00 Temperature 98.2 F Pulse Rate Pulse Rate [Pulse Oximeter] 59 L Respiratory Rate 16 Blood Pressure [Le ft Arm] 148/74 H Pulse Oximetry 98 [facility] Documenting provider has reviewed patient's vital signs: yes DS: Data Data Completed and Pending Labs on day of discharge: Labs from last 24 hours 07/15/23 07/14/23 07/14/23 05:56 21:50 14:00 WBC 5.28 RBC 2.81 L Hgb 8.4 L 8.7 L 8.7 L Hct 25.5 L MCV 91 MCH 30 MCHC 33 RDW Coeff of Nickolas 14.7 Plt Count 190 Neut % (Auto) 68.8 Lymph % (Auto) 19.5 L [place] % (Auto) 8.0 Eos % (Auto) 2.5 Baso % (Auto) 0.6 Neut # (Auto) 3.64 Lymph # (Auto) 1.00 [place] # (Auto) 0.40 Eos # (Auto) 0.13 Baso # (Auto) 0.03 Abs Immat Gran (auto) 0.03 Imm/Tot Granulo (auto) 0.6 INR 1.16 H Discharge Plan Discharge Disposition: Home, Self-Care Date of Admission: 07/13/23 15:00 Attending Provider on Discharge: Noah Willett Primary Care Provider: Sagrario Dudley Condition: Stable Anticipated Discharge Date/Time: 07/15/23 10:13 Discharge Medications: Continued acetaminophen 500 mg tablet 500 mg PO Q6H PRN amoxicillin 500 mg capsule 2,000 mg PO ONCE PRN aspirin 81 mg capsule 81 mg PO DAILY atorvastatin 40 mg tablet 40 mg PO DAILY calcium carbonate 500 mg calcium (1,250 mg) tablet 500 mg PO Q4-6H PRN cholecalciferol (vitamin D3) 50 mcg (2,000 unit) capsule 50 mcg PO DAILY cyanocobalamin (vitamin B-12) 1,000 mcg capsule 1,000 mcg PO DAILY Vitron-C 65 mg iron- 125 mg tablet,delayed release (DR/EC) 1 tab PO DAILY metformin 1,000 mg tablet 1,000 mg PO BIDWMEAL [id number] Tablet 1 tab PO DAILY (DME) blood-glucose meter [Accu-Chek Guide Me Glucose Mtr] Misc MISCELLANEOUS DAILY metoprolol succinate 50 mg tablet extended release 24 hr 50 mg PO DAILY medroxyprogesterone 5 mg tablet 5 mg PO DAILY acetazolamide 250 mg tablet 250 mg PO BID (DME) lancets [Accu-Chek Softclix Lancets] Misc MISCELLANEOUS DAILY furosemide 20 mg tablet 20 mg PO BID Changed warfarin 5 mg tablet 10 mg PO DAILY Qty: 60 0RF Discharge Orders: Discharge Order (Routine); Ordered 07/15/23 Ordered By: Noah Willett Patient Education: Gastrointestinal Bleeding (DC) Additional Instructions: If you get recurrent bleeding return to the emergency department Activity Level: Activity as Tolerated Discharge Diet: Regular Follow Up Appointments: Sheila Pedroza MD [Staff Physician] - 07/20/23 1:00 pm ( Iris Michael for follow-up, and to check INR and hemoglobin.) Sagrario Dudley, [Primary Care Provider] - None (Follow-up in 5 days. Check INR and hemoglobin.) Forms: [employer] Info Instructions
--- NOTE | 2023-07-15 13:06 | PC.NURSE ---
Patient UAL in room. Performing ADLS, no dysphagia with scheduled meds. Eval by Dr. Willett. See tele strip. IV discontinued, tele discontinued. Pt and spouse Markus verbalized understanding of d/c diagnosis, home meds, new coumadin dose, f/up benjamin and sx to report urgently to physician. Teaching on GI bleed. Pt d/c'ed via w/c to own home via w/c @ 1226with her personal belongings and spouse Markus as transportation.
== END 2023-07-15 12:27 | disposition home or self-care (01) | DRG 920 ==
LOC: ED 12:31 → MEDSURG 12:49
PROVIDERS: Admitting Provider Family Medicine; Emergency Provider Family Medicine; PCP Family Medicine; Visit Provider Family Medicine
DX: K91.840 Postprocedural hemorrhage of a digestive system organ or structure following a digestive system procedure (principal); D62 Acute posthemorrhagic anemia; I13.0 Hypertensive heart and chronic kidney disease with heart failure and stage 1 through stage 4 chronic kidney disease, or unspecified chronic kidney disease; I50.30 Unspecified diastolic (congestive) heart failure; I48.91 Unspecified atrial fibrillation; Z95.0 Presence of cardiac pacemaker; Z95.2 Presence of prosthetic heart valve; Z79.01 Long term (current) use of anticoagulants; R79.89 Other specified abnormal findings of blood chemistry; Z79.4 Long term (current) use of insulin; I51.89 Other ill-defined heart diseases; D12.6 Benign neoplasm of colon, unspecified; N18.30 Chronic kidney disease, stage 3 unspecified; E11.22 Type 2 diabetes mellitus with diabetic chronic kidney disease
CPT/HCPCS: 36415; 36430; 80053; 82962; 85018; 85025; 85610; 86850; 86900; 86901; 86922; 93005; 94761; 99284; 99285; A9270; J3430; J7030; P9016